=== PATIENT | male | born 1955 | race Caucasian/White ===

== ENCOUNTER 2020-07-15 13:06 | Emergency (ER) | payer OTHER ==
[~2020-07-15] VITALS: Ht 167.6 cm; Wt 63.0 kg
[2020-07-15 13:34] LABS: BASOPHILS % (AUTO) 1 % (0-1); EOSINOPHILS % (AUTO) 4 % (1-7); LYMPHOCYTES % (AUTO) 27 % (22-44); MEAN CORPUSCULAR HEMOGLOBIN 30.2 pg (27.5-34.5); MEAN CORPUSCULAR HGB CONC 32.8 g/dL (33.2-36.2); MEAN PLATELET VOLUME 6.5 fL (7.4-10.4); MONOCYTES % (AUTO) 10 % (2-9); NEUTROPHILS % (AUTO) 58 % (42-75); PLATELET COUNT 230 x10^3/uL (130-400); RED BLOOD COUNT 4.75 x10^6/uL (4.38-5.82); RED CELL DISTRIBUTION WIDTH 13.8 % (9.4-14.8)
[2020-07-15 13:35] LABS: MD NO
[2020-07-15 13:42] LABS: ALANINE AMINOTRANSFERASE 26 U/L (12-78); ALBUMIN 3.2 g/dL (3.4-5.0); ANION GAP 2 mmol/L (5-15); CALCIUM 8.4 mg/dL (8.5-10.1); CHLORIDE 109 mmol/L (98-107); CREATININE 1.35 mg/dL (0.7-1.3)
[2020-07-15 13:46] LABS: ALKALINE PHOSPHATASE 118 U/L (45-117); BILIRUBIN,TOTAL 0.2 mg/dL (0.2-1.0); TROPONIN I < 0.015 ng/mL (0.000-0.045)
--- NOTE | 2020-07-15 14:02 | NUR ---
PT TO RM FROM [facility] AT THIS TIME, PT DECLINED WHEELCHAIR, AMBULATES WITH STEADY GAIT
--- NOTE | 2020-07-15 14:34 | NUR ---
PT TO IMAGING
[2020-07-15 15:10] VITALS: BP 134/85
--- NOTE | 2020-07-15 15:14 | NUR ---
PT PLACED FOR RECHECK, ALL TESTS RESULTED, VSS
--- NOTE | 2020-07-15 16:17 | NUR ---
Patient/Caregiver given discharge instructions and they have confirmed that they understand the instructions. Patient ambulatory with steady gait.
== END 2020-07-15 16:19 | disposition home or self-care (01) ==
LOC: MERGE 16:10 → ED 16:10
DX: R42 Dizziness and giddiness (principal); R20.2 Paresthesia of skin; R11.0 Nausea; R94.31 Abnormal electrocardiogram [ECG] [EKG]
CPT/HCPCS: 36415; 70450; 70551; 71046; 80053; 84484; 85025; 93005; 99285